=== PATIENT | male | born 1995 | race Caucasian/White ===

== ENCOUNTER 2017-01-03 16:46 | Emergency (ER) | payer MEDICAID ==
[2017-01-03] MEDS ORDERED: NORMAL SALINE 1000 ML 1,000 ML IV PRN (17:25)
--- NOTE | 2017-01-03 17:26 | ER Document Report ---
ED Medical Screen (RME) - General Chief Complaint: Abdominal Pain Stated Complaint: RIGHT FLANK PAIN,VOMITING Time seen by provider: 17:26 Mode of Arrival: Ambulatory Information source: Patient Notes: This is a 21-year-old man who presents to the emergency room with fever, nausea , vomiting and abdominal pain. The patient does admit to some right lower side and right flank pain. He denies any history of kidney stones. He denies any blood in the urine. He denies any dysuria. He does report sore throat on review of systems. TRAVEL OUTSIDE OF THE [place] IN LAST 30 DAYS: No - Related Data Allergies/Adverse Reactions: Penicillins Allergy (Verified 01/03/17 16:52) Past Medical History - Social History Frequency of alcohol use: None Drug Abuse: None Renal/ Medical History: Denies: Hx Peritoneal Dialysis Surgical Hx: Negative Physical Exam - Vital signs Vitals: Temp Pulse Resp BP Pulse Ox 99.4 F 127 H 16 117/56 L 100 01/03/17 16:52 01/03/17 16:52 01/03/17 16:52 01/03/17 16:52 01/03/17 16:52 Course - Vital Signs Vital signs: Temp Pulse Resp BP Pulse Ox 99.4 F 127 H 16 117/56 L 100 01/03/17 16:52 01/03/17 16:52 01/03/17 16:52 01/03/17 16:52 01/03/17 16:52
[2017-01-03 18:19] LABS: APPEARANCE,URINE CLOUDY; BILIRUBIN,URINE SMALL (NEGATIVE); GLUCOSE, URINE NEGATIVE (NEGATIVE); KETONES,URINE 80 mg/dL (NEGATIVE); LEUKOCYTE ESTERASE,URINE NEGATIVE (NEGATIVE); NITRITE,URINE NEGATIVE (NEGATIVE); PROTEIN,URINE 100 mg/dL (NEGATIVE); UROBILINOGEN,URINE NEGATIVE mg/dL (<2.0)
[2017-01-03] MEDS ORDERED: ONDANSETRON HCL INJ/PF 4 MG/2 ML SDV IV ONE (18:43)
[2017-01-03 19:27] LABS: PROTHROMBIN TIME 13.6 SEC (11.4-15.4)
[2017-01-03 19:37] LABS: HEMATOCRIT 41.5 % (37.9-51.0); HGB HCT DIFFERENCE 0.5; MEAN CORPUSCULAR HGB CONC 33.7 g/dL (32.0-36.0); MEAN CORPUSCULAR VOLUME 89 fl (80-97); RED BLOOD COUNT 4.66 10^6/uL (4.35-5.55); RED CELL DISTRIBUTION WIDTH 13.2 % (11.5-14.0); WHITE BLOOD COUNT 21.5 10^3/uL (4.0-10.5)
[2017-01-03 19:44] LABS: BAND NEUTROPHILS % (MANUAL) 4 % (3-5); BASOPHILS % (MANUAL) 0 % (0-2); EOSINOPHILS % (MANUAL) 0 % (0-6); LYMPHOCYTES % (MANUAL) 2 % (13-45); TOTAL CELLS COUNTED 100
[2017-01-03 19:45] LABS: ALANINE AMINOTRANSFERASE 45 U/L (10-40); ALBUMIN 4.8 g/dL (3.7-5.6); ALKALINE PHOSPHATASE 79 U/L (65-260); ANION GAP 17 (5-19); ASPARTATE AMINO TRANSFERASE 27 U/L (10-45); BILIRUBIN,DIRECT 0.3 mg/dL (0.0-0.4); BILIRUBIN,TOTAL 1.4 mg/dL (0.2-1.3); BLOOD UREA NITROGEN 14 mg/dL (7-20); CALCIUM 9.9 mg/dL (8.4-10.2); CARBON DIOXIDE 24 mmol/L (22-30); CHLORIDE 101 mmol/L (98-107); CREATININE RESULT 0.72 mg/dL (0.52-1.25); GLUCOSE 85 mg/dL (75-110); RBC MORPHOLOGY COMMENT NORMO-CYTIC/CHROMIC; SODIUM 141.6 mmol/L (137-145); TOTAL PROTEIN 7.6 g/dL (6.3-8.2); TOXIC GRANULATION SLIGHT
--- NOTE | 2017-01-03 21:06 | ER Document Report ---
ED General - General Chief Complaint: Abdominal Pain Stated Complaint: RIGHT FLANK PAIN,VOMITING Mode of Arrival: Ambulatory Notes: Patient is a 21-year-old male without past medical history, no surgical history who presents with 2 days of vomiting, diarrhea and right flank and lower abdominal pain. He has had an associated fever. He does describe the pain as a mild, cramping, aching pain. Nothing improves or worsens the pain. No known sick contacts. He denies any history of similar symptoms in the past. He has been able to intermittently tolerate oral fluids. He has continued to have diarrhea while here in the emergency department. He was seen in urgent care prior to coming to the emergency department today and referred for evaluation for possible appendicitis. TRAVEL OUTSIDE OF THE [place] IN LAST 30 DAYS: No - Related Data Allergies/Adverse Reactions: Penicillins Allergy (Verified 01/03/17 16:52) Past Medical History - General Information source: Patient - Social History Smoking Status: Never Smoker Frequency of alcohol use: None Drug Abuse: None Lives with: Family Family History: Reviewed & Not Pertinent Patient has suicidal ideation: No Patient has homicidal ideation: No Renal/ Medical History: Denies: Hx Peritoneal Dialysis Surgical Hx: Negative Review of Systems - Review of Systems Notes: Constitutional: Positive for fever. HENT: Negative for sore throat. Eyes: Negative for visual changes. Cardiovascular: Negative for chest pain. Respiratory: Negative for shortness of breath. Gastrointestinal: Positive for abdominal pain, vomiting and diarrhea. Genitourinary: Negative for dysuria. Musculoskeletal: Negative for back pain. Skin: Negative for rash. Neurological: Negative for headaches, weakness or numbness. 10 point ROS negative except as marked above and in HPI. Physical Exam - Vital signs Vitals: Temp Pulse Resp BP Pulse Ox 99.4 F 127 H 16 117/56 L 100 01/03/17 16:52 01/03/17 16:52 01/03/17 16:52 01/03/17 16:52 01/03/17 16:52 Interpretation: Tachycardic Notes: PHYSICAL EXAMINATION: GENERAL: Well-appearing, well-nourished and in no acute distress. HEAD: Atraumatic, normocephalic. EYES: Pupils equal round and reactive to light, extraocular movements intact, sclera anicteric, conjunctiva are normal. ENT: nares patent, oropharynx clear without exudates. Moderately dry mucous membranes. NECK: Normal range of motion, supple without lymphadenopathy LUNGS: Breath sounds clear to auscultation bilaterally and equal. No wheezes rales or rhonchi. HEART: Regular rate and rhythm without murmurs ABDOMEN: Soft, mild tenderness the right lower quadrant without rebound or guarding, mild right CVA tenderness normoactive bowel sounds. No guarding, no rebound. No masses appreciated. EXTREMITIES: Normal range of motion, no pitting or edema. No cyanosis. NEUROLOGICAL: No focal neurological deficits. Moves all extremities spontaneously and on command. PSYCH: Normal mood, normal affect. SKIN: Warm, Dry, normal turgor, no rashes or lesions noted. Course - Re-evaluation Re-evalutation: 01/03/17 21:05 Patient presents with right flank and right lower abdominal pain although he is a very poor historian. He did have a fever at time of arrival and has a prominent leukocytosis on laboratories. Urinalysis is unremarkable. Given that he does continue to have some focal right lower quadrant pain on exam although no rebound or guarding, I believe in the context of his labs and vitals a CT scan of the abdomen and pelvis is indicated to evaluate for an acute appendicitis. 01/03/17 23:20 CT scan of the abdomen and pelvis is unremarkable and the appendix is well- visualized without evidence of acute appendicitis. Repeat abdominal exam remains unimpressive with no focal right lower quadrant tenderness at this time. He remains with some mild right flank tenderness. Urinalysis without evidence of acute urinary tract infection. At this point the exact etiology of patient's presentation is unclear although history of persistent vomiting and diarrhea over the last several days suggested likely viral colitis. I have asked that he be followed by his primary care physician the next 1-2 days. given that he has had fever will also provide a three-day course of ciprofloxacin to cover for possible bacterial colitis. At this time will discharge with return precautions and follow-up recommendations. Verbal discharge instructions given a the bedside and opportunity for questions given. Medication warnings reviewed. Patient is in agreement with this plan and has verbalized understanding of return precautions and the need for primary care follow-up in the next 24-72 hours. - Vital Signs Vital signs: Temp Pulse Resp BP Pulse Ox 98.0 F 95 H 20 112/68 96 01/03/17 23:49 01/03/17 23:49 01/03/17 23:49 01/03/17 23:49 01/03/17 23:49 - Laboratory Result Diagrams: 01/03/17 18:47 01/03/17 18:47 Laboratory results interpreted by me: 01/03/17 01/03/17 01/03/17 17:40 18:47 18:47 WBC 21.5 H Seg Neuts % (Manual) 89 H Lymphocytes % (Manual) 2 L Abs Neuts (Manual) 20.0 H Abs Lymphs (Manual) 0.4 L Total Bilirubin 1.4 H ALT 45 H Urine Protein 100 H Urine Ketones 80 H Urine Bilirubin SMALL H - Diagnostic Test Radiology reviewed: Reports reviewed Discharge - Discharge Clinical Impression: Colitis Abdominal pain Qualifiers: Abdominal location: generalized Qualified Code(s): R10.84 - Generalized abdominal pain Condition: Good Disposition: HOME, SELF-CARE Additional Instructions: You have been seen in the Emergency Department (ED) for abdominal pain. Your evaluation did not identify a clear cause of your symptoms but was generally reassuring. Your CT scan is normal. Your symptoms are likely due to a possible viral colitis which is inflammation of your colon and should improve over the next several days. Take Tylenol or ibuprofen as needed for discomfort. Get plenty of rest. Please follow up with your doctor in the next 1-2 days regarding today's emergent visit and the symptoms that are bothering you and for repeat abdominal exam. Return to the ED if your abdominal pain worsens or fails to improve, you develop bloody vomiting, bloody diarrhea, you are unable to tolerate fluids due to vomiting, fever greater than 101, or other symptoms that concern you. Prescriptions: RX: Ciprofloxacin HCl [Cipro 500 mg Tablet] 500 mg PO BID #6 tablet Forms: Return to Work
[2017-01-03] MEDS ORDERED: CIPROFLOXACIN HCL 500 MG TABLET PO ONE (23:28)
[2017-01-03] MEDS ORDERED: IBUPROFEN 600 MG TABLET PO ONE (23:28)
[2017-01-03 23:53] VITALS: BP 112/68
== END 2017-01-03 23:46 | disposition home or self-care (01) ==
LOC: ER 16:46
DX: K52.9 Noninfective gastroenteritis and colitis, unspecified (principal); R50.9 Fever, unspecified; R00.0 Tachycardia, unspecified; D72.829 Elevated white blood cell count, unspecified; R10.84 Generalized abdominal pain; R11.10 Vomiting, unspecified; R19.7 Diarrhea, unspecified
CPT/HCPCS: 99284; 96361; 96374; 36415; 87070; 87880; 85025; 85610; 87077; 80053; 81001; 74177; J3490 ×2; J2405; J7030

== ENCOUNTER 2018-06-01 23:20 | Emergency (ER) | payer MEDICAID ==
[2018-06-02] MEDS ORDERED: ACETAMINOPHEN 325 MG TABLET PO ONE (00:11)
[2018-06-02] MEDS ORDERED: HYDROCODONE/ACETAMINOPHEN 5-325 MG TABLET PO ONE (00:11)
--- NOTE | 2018-06-02 00:14 | ER Document Report ---
HPI - HPI Patient complains to provider of: Sore throat, ear pain, diarrhea Onset/Duration: Persistent Quality of pain: Achy Pain Level: 4 Context: Patient presents complaining of sore throat and diarrhea for the past 2 weeks. Patient states that he developed right ear pain over the past few days that worsened today. Patient denies any fever. Patient states he is only had one diarrhea bowel movement today. Patient denies any blood in the stool. Associated Symptoms: Diarrhea, Earache, Sore throat. denies: Fever, Headache, Nausea Exacerbated by: Denies Relieved by: Denies Similar symptoms previously: Yes Recently seen / treated by doctor: No - ROS ROS below otherwise negative: Yes Systems Reviewed and Negative: Yes All other systems reviewed and negative - EENT EENT: REPORTS: Sore Throat, Ear Pain - RESPIRATORY Respiratory: DENIES: Trouble Breathing, Coughing - GASTROINTESTINAL Gastrointestinal: REPORTS: Diarrhea. DENIES: Abdominal Pain, Nausea, Patient vomiting - MUSCULOSKELETAL Musculoskeletal: DENIES: Back Pain - DERM Skin Color: Normal Skin Problems: None Past Medical History - General Information source: Patient - Social History Smoking Status: Never Smoker Frequency of alcohol use: None Drug Abuse: None Occupation: None Lives with: Family Family History: Reviewed & Not Pertinent - Medical History Medical History: Negative Renal/ Medical History: Denies: Hx Peritoneal Dialysis Surgical Hx: Negative Vertical Provider Document - CONSTITUTIONAL Agree With Documented VS: Yes Exam Limitations: No Limitations General Appearance: WD/WN, No Apparent Distress - INFECTION CONTROL TRAVEL OUTSIDE OF THE [place] IN LAST 30 DAYS: No - HEENT HEENT: Atraumatic, Normocephalic, Pharyngeal Tenderness, Tympanic Membrane Red - right, Tympanic Membrane Bulging. negative: Pharyngeal Exudate, Pharyngeal Erythema - NECK Neck: Lymphadenopathy-Left, Lymphadenopathy-Right - RESPIRATORY Respiratory: Breath Sounds Normal, No Respiratory Distress - CARDIOVASCULAR Cardiovascular: Regular Rate, Regular Rhythm - GI/ABDOMEN Gastrointestinal: Abdomen Soft, Abdomen Non-Tender, No Organomegaly, Normal Bowel Sounds - BACK Back: Normal Inspection. negative: CVA Tenderness-Right, CVA Tenderness-Left - MUSCULOSKELETAL/EXTREMETIES Musculoskeletal/Extremeties: MAEW - NEURO Level of Consciousness: Awake, Alert, Appropriate Motor/Sensory: No Motor Deficit - DERM Integumentary: Warm, Dry Course - Vital Signs Vital signs: Temp Pulse Resp BP Pulse Ox 100.4 F 93 18 143/75 H 97 10//18 23:25 06/01/18 23:25 06/01/18 23:25 06/01/18 23:25 06/01/18 23:25 Discharge - Discharge Clinical Impression: Sore throat Otitis media Qualifiers: Otitis media type: unspecified Chronicity: acute Qualified Code(s): H66.90 - Otitis media, unspecified, unspecified ear Diarrhea Qualifiers: Diarrhea type: unspecified type Qualified Code(s): R19.7 - Diarrhea, unspecified Condition: Stable Disposition: HOME, SELF-CARE Instructions: Otitis Media ([facility]), Sore Throat ([facility]) Additional Instructions: Return immediately for any new or worsening symptoms Followup with your primary care provider, call tomorrow to make a followup appointment Collect a stool specimen and bring to lab for testing Prescriptions: Cefdinir 300 mg PO BID #20 capsule Forms: Follow-Up Laboratory Testing Referrals: [facility] [Provider Group] - Follow up as needed
[2018-06-02 00:24] VITALS: BP 128/75
== END 2018-06-02 00:25 | disposition home or self-care (01) ==
LOC: ER 23:20
DX: J02.9 Acute pharyngitis, unspecified (principal); R19.7 Diarrhea, unspecified; H66.90 Otitis media, unspecified, unspecified ear; H92.01 Otalgia, right ear; R59.0 Localized enlarged lymph nodes
CPT/HCPCS: 99283; J3490